=== PATIENT | female | born 1930 | race Caucasian/White ===

== ENCOUNTER 2017-11-28 20:06 | Inpatient (IN) | payer OTHER ==
[~2017-11-28] VITALS: Ht 152.4 cm; Wt 43.5 kg
[2017-11-28 20:06] VITALS: BP 175/84
[~2017-11-28 20:06] MED LIST: CARV25TA PO; CILO100T PO; ENAL10TA PO; GLU500 PO; HUM7030 SC; ISOS20TA13 PO; LANTUS SC; NIFEDIPINE PO; NITR100C1 PO; SIMV10TA1 PO; WARF2TAB17 PO; [UNRECOGNIZED DRUG - OTHER] PO
--- NOTE | 2017-11-28 20:06 | NUR ---
PT DEE DEE ALS. TAKEN TO BED 1
--- NOTE | 2017-11-28 20:06 | NUR ---
87/F BIBA FROM HOME W C/O SOB X 20 MINS AGO. PER EMS PT SATS 80S ON RA, PLACED ON CPAP, SATS 98%. RALES NOTED THROUGOUT, PT NOTED WITH INCREASED ACCESORY MUSCLE USE,SATS 98% ON BIPAP, 82HR. EMS GAVE 2 DOSES OF NITRO SL. +1 PITTING EDEMA ON BLE. PMH: DM, CHF, HTN
--- NOTE | 2017-11-28 20:10 | NUR ---
PT PLACED ON BIPAP SUPPORT AT DOCUMENTED SETTINGS, SETTINGS CONFIRMED BY DR WAGNER, TOLERATING BIPAP WELL, WILL CONT TO MONITOR.
[2017-11-28] MEDS ORDERED: NACL 0.9% 1,000 ML IV SCH (20:12)
[2017-11-28 20:17] VITALS: BP 175/84
[2017-11-28] MEDS ORDERED: FUROSEMIDE 40 MG/4 ML VIAL IVP ONE (20:20)
[2017-11-28] MEDS ORDERED: methylPREDNISolone SS 125 MG/2 ML VIAL IVP ONE (20:20)
[2017-11-28] MEDS ORDERED: ALBUTEROL SULFATE/IPRATROPIU 3 ML SOL IH ONE (20:30)
[2017-11-28] MEDS ORDERED: hydrALAZINE 20 MG/ML VIAL IVP ONE (20:50)
[2017-11-28] MEDS ORDERED: NITROGLYCERIN 2% 1 GM PKT TP ONE (20:50)
[2017-11-28 21:18] LABS: BASOPHILS # (AUTO) 0.1 K/uL (0.00-0.22); BASOPHILS % (AUTO) 1.2 % (0.0-2.0); EOSINOPHILS # (AUTO) 0.1 K/uL (0-0.4); EOSINOPHILS % (AUTO) 1.3 % (0.0-4.0); HEMATOCRIT 38.3 % (36-48); HEMOGLOBIN 12.8 g/dL (12.0-16.0); LYMPHOCYTES # (AUTO) 2.1 K/uL (2.5-16.5); LYMPHOCYTES % (AUTO) 29.7 % (20.5-51.1); MEAN CORPUSCULAR HEMOGLOBIN 28 pg (27-31); MEAN CORPUSCULAR HGB CONC 34 g/dL (33-37); MEAN CORPUSCULAR VOLUME 85 fL (80-94); MONOCYTES # (AUTO) 0.6 K/uL (0.8-1.0); MONOCYTES % (AUTO) 8.3 % (1.7-9.3); NEUTROPHILS # (AUTO) 4.3 K/uL (1.8-7.7); NEUTROPHILS % (AUTO) 59.5 % (42.2-75.2); PLATELET COUNT (AUTO) 149 K/uL (140-450); RED BLOOD CELL COUNT(AUTO) 4.51 MIL/uL (4.20-5.40); RED CELL DISTRIBUTION WIDTH 13.8 % (11.6-13.7); WHITE BLOOD COUNT (AUTO) 7.2 K/uL (4.8-10.8)
[2017-11-28 21:37] LABS: ANION GAP 16.6 (8-16); CARBON DIOXIDE 26.1 mmol/L (21-32); CHLORIDE 106 mmol/L (98-107); CREATININE 1.5 mg/dL (0.6-1.3); GLUCOSE 260 mg/dL (74-106); POTASSIUM 4.7 mmol/L (3.5-5.1); SODIUM SERUM 144 mmol/L (136-145); UREA NITROGEN, BLOOD 41 mg/dL (7-18)
[2017-11-28 21:45] LABS: PROTHROMBIN TIME 10.4 secs (10.8-13.4)
[2017-11-28 21:48] LABS: ALBUMIN 3.6 g/dL (3.4-5.0); ASPARTATE AMINOTRANSFERASE 20 U/L (15-37); TOTAL BILIRUBIN 0.7 mg/dL (0.0-1.0)
[2017-11-28 22:14] LABS: APPEARANCE,URINE CLOUDY (CLEAR); BILIRUBIN,URINE NEGATIVE (NEGATIVE); BLOOD, URINE TRACE-I (NEGATIVE); COLOR,URINE YELLOW (YELLOW); LEUKOCYTE ESTERASE ,URINE TRACE (NEGATIVE); NITRITE, URINE NEGATIVE (NEGATIVE); PH,URINE 6.5 (5.0-9.0); UGLUCOSE TRACE (NEGATIVE)
[2017-11-28 22:46] LABS: RBC,URINE 3-10 (FEW) /HPF (0-5)
[2017-11-28 22:47] LABS: WBC,URINE 16-25 (MOD) /HPF (0-5)
[2017-11-28] MEDS ORDERED: HYDROcodone/APAP 7.5/325 MG 1 TAB PO PRN (23:00)
[2017-11-28] MEDS ORDERED: ONDANSETRON 4 MG/2 ML VIAL IVP PRN (23:00)
[2017-11-28] MEDS ORDERED: ALBUTEROL SULFATE/IPRATROPIU 3 ML SOL IH PRN (23:00)
[2017-11-28] MEDS ORDERED: ACETAMINOPHEN 325 MG TAB PO PRN (23:00)
[2017-11-28] MEDS ORDERED: DEXTROSE 50% 50 ML SYR IVP PRN (23:05)
[2017-11-28] MEDS ORDERED: cefTRIAXone 1,000 MG VIAL ONE (23:07)
--- NOTE | 2017-11-28 23:22 | NUR ---
Patient will be admitted to care of [facility]. Admited to TELE. Will go to room 121A. Belongings list completed. BEDSIDE Report to CHASE TELLO. IV INFUSING
[2017-11-28 23:49] LABS: BARBITURATE, URINE NEG. ng/ml (NEG <=200); BENZODIAZEPINE, URINE NEG. ng/mL (NEG <=200); CANNABINOID, URINE NEG. ng/mL (NEG <=50); COCAINE, URINE NEG. ng/mL (NEG <=300); OPIATE, URINE NEG. ng/mL (NEG <=2000); PHENCYCLIDINE SCREEN,URINE NEG. ng/mL (NEG <=25)
[2017-11-29] VITALS (9 sets, daily range): BP systolic 0–188; BP diastolic 0–96
--- NOTE | 2017-11-29 | NUR ---
RECEIVED REPORT FROM ER NURSE AT THE BEDSIDE, PT IS AAOX4, ON BI-PAP. SKIN IS INTACT. IV TO L FA 20G PATENT AND INTACT INFUSING WELL. RESPIRATIONS ARE EVEN AND UNLABORED. SKIN IS WARM AND DRY TO TOUCH. DAUGHTER IS WITH PT AT THE BEDSIDE. INITIAL ASSESSMENT COMPLETED. PLAN OF CARE DISCUSSED WITH PT AND MOTHER, VERBALIZED UNDERSTANDING. ALL SAFETY PRECAUTIONS MET, CALL LIGHT WITHIN REACH, BOARD UPDATED, WILL CONTINUE TO MONITOR
--- NOTE | 2017-11-29 00:15 | NUR ---
DR. AVENDAÑO IN TO SEE PT AND DISCUSSED PLAN OF CARE WITH PT AND DAUGHTER
[2017-11-29] MEDS ORDERED: SIMV40TA5 PO (00:22)
[2017-11-29] MEDS ORDERED: ASPI81CT89 PO (00:22)
[2017-11-29] MEDS ORDERED: ENAL10TA PO (00:22)
[2017-11-29] MEDS ORDERED: SITA25TA3 PO (00:22)
[2017-11-29] MEDS ORDERED: GABA100C PO (00:22)
[2017-11-29] MEDS ORDERED: ENAL20TA PO (00:23)
[2017-11-29] MEDS ORDERED: LIDOCAINE 2% 100 MG/5 ML UJET TP PRN (01:05)
[2017-11-29] MEDS ORDERED: FURO-570 PO (01:09)
[2017-11-29 02:34] LABS: CHOL/HDL RATIO 4.9 (1-4.5); FREE T4 (FREE THYROXINE) 0.92 ng/dL (0.76-1.46); PHOSPHORUS 4.8 mg/dL (2.5-4.9); THYROID STIMULATING HORMONE 11.39 uIU/mL (0.34-3.74)
--- NOTE | 2017-11-29 03:30 | NUR ---
PT RESTING COMFORTABLY IN BED. NO S/S OF DISTRESS NOTED. ALL SAFETY PRECAUTIONS MET CALL LIGHT WITHIN REACH WILL CONTINUE TO MONITOR
[2017-11-29 06:28] LABS: BASOPHILS # (AUTO) 0.1 K/uL (0.00-0.22); BASOPHILS % (AUTO) 1.4 % (0.0-2.0); EOSINOPHILS % (AUTO) 0.2 % (0.0-4.0); HEMOGLOBIN 11.8 g/dL (12.0-16.0); LYMPHOCYTES # (AUTO) 0.8 K/uL (2.5-16.5); LYMPHOCYTES % (AUTO) 11.7 % (20.5-51.1); MEAN CORPUSCULAR HEMOGLOBIN 29 pg (27-31); MEAN CORPUSCULAR HGB CONC 34 g/dL (33-37); MEAN CORPUSCULAR VOLUME 86 fL (80-94); MONOCYTES % (AUTO) 0.6 % (1.7-9.3); NEUTROPHILS # (AUTO) 5.9 K/uL (1.8-7.7); NEUTROPHILS % (AUTO) 86.1 % (42.2-75.2); PLATELET COUNT (AUTO) 131 K/uL (140-450); RED BLOOD CELL COUNT(AUTO) 4.07 MIL/uL (4.20-5.40); RED CELL DISTRIBUTION WIDTH 13.7 % (11.6-13.7); WHITE BLOOD COUNT (AUTO) 6.8 K/uL (4.8-10.8)
[2017-11-29 06:41] LABS: MAGNESIUM 1.9 mg/dL (1.8-2.4); PHOSPHORUS 4.2 mg/dL (2.5-4.9)
[2017-11-29 06:58] LABS: ANION GAP 17.4 (8-16); CARBON DIOXIDE 22.9 mmol/L (21-32); CHLORIDE 105 mmol/L (98-107); POTASSIUM 5.3 mmol/L (3.5-5.1); SODIUM SERUM 140 mmol/L (136-145)
[2017-11-29 07:04] LABS: CREATININE 1.5 mg/dL (0.6-1.3); GLUCOSE 440 mg/dL (74-106); UREA NITROGEN, BLOOD 49 mg/dL (7-18)
--- NOTE | 2017-11-29 07:06 | NUR ---
RECEIVED CRITICAL LAB VALUE OF GLUCOSE 440 FROM LAB, MADE RESIDENTS AWARE
[2017-11-29] MEDS: ALBUTEROL SULFATE/IPRATROPIU 3 ML SOL IH SCH ×3 (07:36→20:19)
[2017-11-29] MEDS: BLOOD GLUCOSE MONITORING 1 DEV DEV FS SCH ×4 (07:38→21:00)
[2017-11-29] MEDS: INSULIN LISPRO SLIDING SCALE 100 UNITS/ML VIAL SUBQ PRN ×4 (07:39→20:54)
--- NOTE | 2017-11-29 07:45 | NUR ---
REPORT GIVEN TO DAY NURSE FOR CONTINUITY OF CARE, PT IN STABLE CONDITION. NO S/S OF DISTRESS NOTED
--- NOTE | 2017-11-29 07:50 | NUR ---
RECEIVED PATIENT REPORT AT BEDSIDE FROM NIGHT NURSE. PATIENT IS AAO X4 AND SHOWS NO S/S OF ACUTE DISTRESS ON BIPAP. DENIES PAIN NO SOB, DYSPNEA OR CHEST PAIN. IV NOTED ON THE LEFT AC SL, IV IS PATENT AND INTACT. SKIN IS INTACT. PATIENT WAS EXPLAINED POC, HOSPITAL ENVIRONMENT, AND USE OF CALL LIGHT FOR ASSISTANCE. PATIENT VERBALIZED UNDERSTANDING, WILL REQUIRE REINFORCEMENT AND FREQUENT ROUNDING. BED IS IN LOW POSITION WITH CALL LIGHT WITHIN REACH. SAFETY AND FALL RISK PRECAUTIONS IN PLACE.
--- NOTE | 2017-11-29 08:00 | NUR ---
PATIENT BP IS 188/72 HR 75 ON BIPAP O2 SAT @ 98% SHOWS NO S/S OF ACUTE DISTRESS BUT STATES, " ME MOLESTA LA MABLE." THE PATIENT IS UNCOMFORTABLE WITH BIPAP ON WILL TAKE OFF BIPAP AND GIVE PO MEDICATIONS AND ASSESS PATIENT OFF BIPAP.
[2017-11-29] MEDS: DOCUSATE SODIUM 100 MG GELCAP PO SCH ×2 (08:44→21:03)
[2017-11-29] MEDS: GABAPENTIN 100 MG CAP PO SCH ×3 (08:44→17:08)
[2017-11-29] MEDS: FUROSEMIDE 40 MG/4 ML VIAL IVP SCH (08:44)
[2017-11-29] MEDS: ASPIRIN 81 MG TAB.CHEW PO SCH (08:44)
[2017-11-29] MEDS: CYCLOBENZAPRINE 10 MG TAB PO SCH ×3 (08:45→17:09)
[2017-11-29] MEDS: LACTOBACILLUS RHAMNOSUS GG 1 EACH CAP PO SCH (08:45)
--- NOTE | 2017-11-29 08:45 | NUR ---
ADMINISTERED SCHEDULED MEDICATIONS, PATIENT SWALLOWED WITHOUT DIFFICULTY, PATIENT DENIES CHEST PAIN AND SOB. BIPAP MASK TAKEN OFF AND APPLIED O2 @ 2L VIA NC.
--- NOTE | 2017-11-29 08:45 | NUR ---
PATIENT REMOVED BY JOHNNA/RN FOR MORNING PO MEDS PLACED ON SUPPLEMENTAL OXYGEN AT 2 LPM VIA NC
--- NOTE | 2017-11-29 08:50 | NUR ---
CALLED DIONNA BLANDON TO EVALUATE PATIENT OFF BIPAP. PATIENT DOING WELL O2 SAT @ 98% DENIES DYSPNEA AND SOB. BED IN LOW POSITION WITH CALL LIGHT WITHIN REACH.
--- NOTE | 2017-11-29 08:52 | NUR ---
PATIENT HAS BEEN SCREENED AND CATEGORIZED MODERATE NUTRITION RISK. PATIENT WILL BE SEEN WITHIN 3-5 DAYS OF ADMISSION. 11/30/17-12/02/[address]
--- NOTE | 2017-11-29 08:55 | NUR ---
PATIENT ASSESSMENT DONE PATIENT DOING WELL OFF BIPAP SATURATION 97% ON SUPPLEMENTAL OXYGEN AT 2 LPM VIA NC HR 74 RR 20 NO EVIDENCE OF PULMONARY DISTRESS NOTED JOHNNA/RN AWARE
[2017-11-29] MEDS ORDERED: CARVEDILOL 12.5 MG TAB PO SCH (09:00)
[2017-11-29] MEDS ORDERED: ENALAPRIL 10 MG TAB PO SCH (09:00)
[2017-11-29] MEDS ORDERED: INSULIN DETEMIR 100 UNITS/ML 10 ML VIAL SUBQ SCH (09:00)
[2017-11-29] MEDS ORDERED: methylPREDNISolone SS 125 MG/2 ML VIAL IVP SCH (09:00)
--- NOTE | 2017-11-29 10:30 | NUR ---
ULTRA SOUNDS PROCEDURE IN PROGRESS LICENSED TAX CONSULTANT TO ATTEMPT INCENTIVE THERAPY AT A LATER TIME LOC AWAKE AND ALERT SATURATION 97% ON SUPPLEMENTAL OXYGEN AT 2 LPM VIA NC RR 24 BREATH SOUNDS CLEAR AT LEFT SIDE TO INSP/EXP RALES AT RIGHT SIDE LICENSED TAX CONSULTANT TO MONITOR
--- NOTE | 2017-11-29 10:31 | NUR ---
[facility] V60 BIPAP REMAINS AT BEDSIDE
--- NOTE | 2017-11-29 10:35 | NUR ---
US TECH AT BEDSIDE WILL TAKE OUT CAMARA CATHETER ONCE DONE.
--- NOTE | 2017-11-29 11:00 | NUR ---
DISCONTINUED CAMARA CATHETER ORDERED, 400CC OF YELLOW URINE DRAINED. BED IN LOW POSITION WITH CALL LIGHT WITHIN REACH. FAMILY AT BEDSIDE.
--- NOTE | 2017-11-29 11:23 | NUR ---
PATIENT BS IS 448, DR SOLO AWARE, ORDERED TO GIVE 10 UNITS HUMALOG.
--- NOTE | 2017-11-29 13:05 | NUR ---
PATIENT OUT OF BED IN BATHROOM AT THIS TIME HAT STOCK LAMINATING MACHINE OPERATOR TO ATTEMPT HHN THERAPY AT A LATER TIME
[2017-11-29] MEDS: cloNIDine 0.1 MG TAB PO SCH ×2 (13:42→21:03)
--- NOTE | 2017-11-29 13:42 | NUR ---
ADMINISTERED SCHEDULED MEDICATIONS. PATIENT SWALLOWED WITHOUT DIFFICULTY. PATIENT'S NEEDS MET AT THIS TIME. BED IN LOW POSITION WITH CALL LIGHT WITHIN REACH.
--- NOTE | 2017-11-29 14:37 | NUR ---
MEMBER SERVICE REPRESENTATIVE AT BEDSIDE. PATIENT IS SLEEPING AND SHOWS NO S/S OF ACUTE DISTRESS AT THIS TIME.
[2017-11-29] MEDS ORDERED: SODIUM POLYSTYRENE 15 GM/60 ML UDBTL PR SCH ×2 (15:30→18:00)
--- NOTE | 2017-11-29 15:50 | NUR ---
PATIENT V/S WERE TAKEN ON ROOM AIR. PATIENT DENIES SOB, DYSPNEA, AND CHEST PAIN. PATIENT O2 SAT IS 95% ROOM AIR. BED IN LOW POSITION WITH CALL LIGHT WITHIN REACH.
--- NOTE | 2017-11-29 17:13 | NUR ---
ADMINISTERED SCHEDULED MEDICATIONS. PATIENT SWALLOWED WITHOUT DIFFICULTY, PATIENT BS IS 308 SLIDING SCALE INITIATED AND GAVE 8 UNITS OF HUMALOG INSULIN. ALL NEEDS MET AT THIS TIME, BED IN LOW POSITION AND CALL LIGHT WITHIN REACH.
[2017-11-29] MEDS ORDERED: HYDROCHLOROTHIAZIDE 25 MG TAB PO SCH (17:42)
[2017-11-29] MEDS ORDERED: LACTULOSE 20 GM/30 ML UDC PO SCH (17:43)
--- NOTE | 2017-11-29 17:57 | NUR ---
ADMINISTERED SCHEDULED MEDICATIONS. PATIENT SWALLOWED WITHOUT DIFFICULTY, PATIENT'S MEDICATIONS FOR KAYEXALATE STILL AT BEDSIDE, PATIENT DRANK SOME OF IS HOWEVER STATES, "UN RATITO LO RAFY." PATIENT DOES NOT LIKE TASTE AND WILL TRY TO DRINK ALL OF IT AT A LATER TIME.
--- NOTE | 2017-11-29 19:25 | NUR ---
PATIENT REPORT GIVEN AT BEDSIDE TO NIGHT NURSE, PATIENT ENDORSED IN STABLE CONDITION
--- NOTE | 2017-11-29 19:30 | NUR ---
RECEIVED PT FROM JOHNNA TELLO PT BURMESE SPEAKER AAOX4 AMBULATES WITH LITHOGRAPHIC PRESS FEEDER ON TELEMETRY SR HL ON LEFT AC PATENT ON 2 LTS VIA NC NOT SOB NOTED REPOSITIONED INITIAL ASSESSMENT DONE
[2017-11-29] MEDS: SIMVASTATIN 40 MG TAB PO SCH (21:03)
--- NOTE | 2017-11-29 21:30 | NUR ---
PT IS ASSISTED TO USED BEDPAN VOIDING WELL YELLOW URINE
[2017-11-30] VITALS (7 sets, daily range): BP systolic 153–168; BP diastolic 56–65
--- NOTE | 2017-11-30 | NUR ---
PT REPOSITIONED NOT SOB NOTED PT IS ASSISTED WITH A BED MEDELLIN VOIDING WELL ON TELEMETRY SR
--- NOTE | 2017-11-30 04:00 | NUR ---
SPONGE BATH GIVEN LINEN CHANGED, REPOSITIONED Q2H, PT HAS BEEN VOIDING WELL ON TELE SR
[2017-11-30] MEDS: cloNIDine 0.1 MG TAB PO SCH ×3 (05:24→21:01)
[2017-11-30] MEDS: INSULIN LISPRO SLIDING SCALE 100 UNITS/ML VIAL SUBQ PRN ×4 (06:36→20:50)
--- NOTE | 2017-11-30 06:43 | NUR ---
PT SLEEPING DENEIS ANY PAIN OR DISCOMFORT ON TELEMETRY SR BP WILL BE MONITORING AFTER CLONIDINE GIVEN
[2017-11-30] MEDS: ALBUTEROL SULFATE/IPRATROPIU 3 ML SOL IH SCH ×3 (07:00→20:00)
--- NOTE | 2017-11-30 07:10 | NUR ---
ENDORSEMENT RECEIVED FROM ACCOUNTING MANAGER CPA NURSE. PATIENT IS SLEEPING COMFORTABLY. RESPIRATION EVEN, UNLABOR ON ROOM AIR. SKIN DRY AND WARM. IV PATENT AND INTACT. NO DISTRESS NOTED AT THIS TIME. BED AT LOW POSITION, CALL LIGHT WITHIN REACH.
--- NOTE | 2017-11-30 07:28 | NUR ---
PT IS ENDORSED TO GALLO TELLO FOR CONTINUITY OF CARE
[2017-11-30 07:38] LABS: BASOPHILS # (AUTO) 0.1 K/uL (0.00-0.22); BASOPHILS % (AUTO) 0.5 % (0.0-2.0); EOSINOPHILS % (AUTO) 0.1 % (0.0-4.0); HEMATOCRIT 33.5 % (36-48); HEMOGLOBIN 11.5 g/dL (12.0-16.0); LYMPHOCYTES # (AUTO) 0.7 K/uL (2.5-16.5); LYMPHOCYTES % (AUTO) 7.4 % (20.5-51.1); MEAN CORPUSCULAR HEMOGLOBIN 29 pg (27-31); MEAN CORPUSCULAR HGB CONC 35 g/dL (33-37); MEAN CORPUSCULAR VOLUME 84 fL (80-94); MONOCYTES # (AUTO) 0.2 K/uL (0.8-1.0); MONOCYTES % (AUTO) 1.9 % (1.7-9.3); NEUTROPHILS # (AUTO) 9.1 K/uL (1.8-7.7); NEUTROPHILS % (AUTO) 90.1 % (42.2-75.2); PLATELET COUNT (AUTO) 121 K/uL (140-450); RED BLOOD CELL COUNT(AUTO) 3.98 MIL/uL (4.20-5.40); RED CELL DISTRIBUTION WIDTH 14.3 % (11.6-13.7); WHITE BLOOD COUNT (AUTO) 10.1 K/uL (4.8-10.8)
[2017-11-30 08:53] LABS: MAGNESIUM 2.1 mg/dL (1.8-2.4); PHOSPHORUS 4.8 mg/dL (2.5-4.9)
[2017-11-30] MEDS ORDERED: CARVEDILOL 12.5 MG TAB PO SCH (08:53)
[2017-11-30 08:55] LABS: ANION GAP 14.2 (8-16); CHLORIDE 105 mmol/L (98-107); CREATININE 1.4 mg/dL (0.6-1.3); GLUCOSE 321 mg/dL (74-106); POTASSIUM 4.2 mmol/L (3.5-5.1); SODIUM SERUM 140 mmol/L (136-145); UREA NITROGEN, BLOOD 55 mg/dL (7-18)
[2017-11-30] MEDS ORDERED: methylPREDNISolone SS 40 MG/ML VIAL IVP SCH (09:00)
[2017-11-30] MEDS ORDERED: HYDROCHLOROTHIAZIDE 25 MG TAB PO SCH (09:00)
[2017-11-30] MEDS: LACTOBACILLUS RHAMNOSUS GG 1 EACH CAP PO SCH (09:13)
[2017-11-30] MEDS: FUROSEMIDE 40 MG/4 ML VIAL IVP SCH (09:14)
[2017-11-30] MEDS: GABAPENTIN 100 MG CAP PO SCH ×3 (09:14→16:15)
[2017-11-30] MEDS: DOCUSATE SODIUM 100 MG GELCAP PO SCH ×2 (09:15→20:58)
[2017-11-30] MEDS: ASPIRIN 81 MG TAB.CHEW PO SCH (09:15)
[2017-11-30] MEDS: CYCLOBENZAPRINE 10 MG TAB PO SCH ×3 (09:15→16:15)
[2017-11-30] MEDS: INSULIN DETEMIR 100 UNITS/ML 10 ML VIAL SUBQ SCH (09:16)
--- NOTE | 2017-11-30 10:45 | NUR ---
PATIENT IS AWAKE, ALERT. RESPIRATION EVEN, UNLABOR ON ROOM AIR. AMBULATED SELF TO BATHROOM WITH ASSISTANCE, STEADY GAIT. DENIED SOB AT THIS TIME. CALL LIGHT WITHIN REACH
[2017-11-30] MEDS: BLOOD GLUCOSE MONITORING 1 DEV DEV FS SCH ×3 (11:47→20:59)
--- NOTE | 2017-11-30 11:53 | NUR ---
PATIENT IS AWAKE, ALERT. RESPIRATION EVEN, UNLABOR ON ROOM AIR. COMPLAINED OF BACK PAIN 07/21. WILL NOTIFY MD, MEDICATE PER ORDER. FAMILY AT BEDSIDE
--- NOTE | 2017-11-30 11:55 | NUR ---
PT NOTE 1125 RECEIVED ORDER FOR PT EVAL, CHART REVIEWED AND CLEARED FOR PT PER RN. Pt WAS SEEN AWAKE, DAUGHTER PRESENT IN THE ROOM WHO STATES THAT Pt CANNOT PARTICIPATE WITH PT EVAL AT THIS TIME DUE TO PAIN; NOTIFIED RN. PER RN, Pt DOES NOT HAVE ANY ORDER FOR PAIN MEDS AT THE MOMENT; INFORMED DAUGHTER REGARDING THIS, DAUGHTER STILL REFUSED FOR Pt TO BE SEEN BY PT; WILL FOLLOW UP W/Pt SATURDAY. PVE(2)
--- NOTE | 2017-11-30 13:21 | NUR ---
PT SLEEPING WITH FAMILY AT BEDSIDE NO SIGNS OF DISTRESS AT THIS TIME
[2017-11-30] MEDS: HYDROcodone/APAP 5/325 MG 1 TAB TAB PO PRN (14:02)
[2017-11-30] MEDS ORDERED: NIFEdipine 30 MG TABER PO SCH ×2 (14:32→20:00)
--- NOTE | 2017-11-30 15:25 | NUR ---
PATIENT AMBULATED SELF WITH ASSIST TO THE BATHROOM, STEADY GAIT. MED WAS GIVEN PER ORDER.
[2017-11-30] MEDS: CARVEDILOL 12.5 MG TAB PO SCH (16:15)
--- NOTE | 2017-11-30 16:36 | NUR ---
DR. SOLO WAS MADE AWARE OF EKG WITH ST DEPRESSION.
--- NOTE | 2017-11-30 18:45 | NUR ---
PATIENT IS SLEEPING COMFORTABLY. RESPIRATION EVEN, UNLABOR ON 2L NC. NO DISTRESS NOTED AT THIS TIME. IV PATENT AND INTACT. CALL LIGHT WITHIN REACH
--- NOTE | 2017-11-30 19:19 | NUR ---
ENDORSEMENT GIVEN TO THE CLUTCH ASSEMBLER NURSE. PATIENT IS STABLE AT THIS TIME
--- NOTE | 2017-11-30 19:25 | NUR ---
RECEIVED PT FROM GALLO RN PT OCCITAN SPEAKER AAOX4 ON BED REST ON 02 2 LTS VIA NC ON TELEMETRY SR HL ON LEFT AC PATENT NOT SOB NOTED RELATIVES AT BED SIDE INITIAL ASSESSMENT DONE
--- NOTE | 2017-11-30 20:15 | NUR ---
TOLERATED INCENTIVE SPIROMETRY THERAPY WELL WITHOUT INCIDENT ENCOURAGED PATIENT WITH ACKNOWLEDGEMENT TO USE INCENTIVE SPIROMETRY EVERY 1-2 HOURS WHILE AWAKE BOBO uchooseS V60 BIPAP AT BEDSIDE
[2017-11-30] MEDS ORDERED: FUROSEMIDE 40 MG/4 ML VIAL IVP SCH (21:00)
[2017-11-30] MEDS: SIMVASTATIN 40 MG TAB PO SCH (21:00)
--- NOTE | 2017-11-30 22:35 | NUR ---
PT IS ASSISTED TO USED BED MEDELLIN VOIDING WELL YELLOW URINE ON TELE SR REPOSIIONNED Q3H
[2017-12-01] VITALS: BP 163/65
--- NOTE | 2017-12-01 02:14 | NUR ---
PT VERBALIZED TO FEEL THAT SHE WANT TO EAT SOMETHING SWEET AND PT IS AAOX4 AND PT USING BSC VOIDING AND BLOOD TEST WAS TAKEN AND WAS 60 AND SNACK GIVEN AND BLOOD TEST WILL BE TAKEN LATER
--- NOTE | 2017-12-01 03:30 | NUR ---
BLOOD SUGAR TAKEN AFTER PT EATING SNACK 86
[2017-12-01 04:00] VITALS: BP 107/46
[2017-12-01] MEDS: cloNIDine 0.1 MG TAB PO SCH (05:00)
--- NOTE | 2017-12-01 06:00 | NUR ---
SPONGE BATH GIVEN LINEN CHANGED NOT SOB NOTED BLOOD SUGAR TEST 182
[2017-12-01] MEDS: BLOOD GLUCOSE MONITORING 1 DEV DEV FS SCH ×4 (06:01→20:49)
[2017-12-01] MEDS: INSULIN LISPRO SLIDING SCALE 100 UNITS/ML VIAL SUBQ PRN ×2 (06:16→12:41)
[2017-12-01 07:03] LABS: BASOPHILS # (AUTO) 0.1 K/uL (0.00-0.22); EOSINOPHILS # (AUTO) 0.1 K/uL (0-0.4); EOSINOPHILS % (AUTO) 1.2 % (0.0-4.0); HEMATOCRIT 32.8 % (36-48); HEMOGLOBIN 10.9 g/dL (12.0-16.0); LYMPHOCYTES # (AUTO) 1.4 K/uL (2.5-16.5); LYMPHOCYTES % (AUTO) 18.8 % (20.5-51.1); MEAN CORPUSCULAR HEMOGLOBIN 28 pg (27-31); MEAN CORPUSCULAR HGB CONC 33 g/dL (33-37); MEAN CORPUSCULAR VOLUME 85 fL (80-94); MONOCYTES # (AUTO) 0.6 K/uL (0.8-1.0); MONOCYTES % (AUTO) 8.8 % (1.7-9.3); NEUTROPHILS # (AUTO) 5.1 K/uL (1.8-7.7); NEUTROPHILS % (AUTO) 70.2 % (42.2-75.2); PLATELET COUNT (AUTO) 130 K/uL (140-450); RED BLOOD CELL COUNT(AUTO) 3.85 MIL/uL (4.20-5.40); RED CELL DISTRIBUTION WIDTH 13.9 % (11.6-13.7); WHITE BLOOD COUNT (AUTO) 7.3 K/uL (4.8-10.8)
--- NOTE | 2017-12-01 07:22 | NUR ---
ENDORSEMENT RECEIVED FROM LIEUTENANT COLONEL NURSE. PATIENT IS SLEEPING COMFORTABLY. RESPIRATION EVEN, UNLABOR ON 2L NC. SKIN DRY AND WARM. NO DISTRESS NOTED AT THIS TIME. IV PATENT AND INTACT. BED AT LOW POSITION WITH BED ALARM ON. CALL LIGHT WITHIN REACH
[2017-12-01 07:33] LABS: MAGNESIUM 2.1 mg/dL (1.8-2.4); PHOSPHORUS 4.4 mg/dL (2.5-4.9)
[2017-12-01] MEDS: ALBUTEROL SULFATE/IPRATROPIU 3 ML SOL IH SCH ×3 (07:53→20:08)
[2017-12-01 08:00] VITALS: BP 107/53
[2017-12-01] MEDS: GABAPENTIN 100 MG CAP PO SCH ×3 (08:46→16:08)
[2017-12-01] MEDS: LACTOBACILLUS RHAMNOSUS GG 1 EACH CAP PO SCH (08:46)
[2017-12-01] MEDS: DOCUSATE SODIUM 100 MG GELCAP PO SCH ×2 (08:47→20:52)
[2017-12-01] MEDS: ASPIRIN 81 MG TAB.CHEW PO SCH (08:47)
[2017-12-01] MEDS: CYCLOBENZAPRINE 10 MG TAB PO SCH ×3 (08:47→16:08)
[2017-12-01] MEDS: FUROSEMIDE 40 MG/4 ML VIAL IVP SCH (08:47)
[2017-12-01] MEDS: CARVEDILOL 12.5 MG TAB PO SCH ×2 (08:48→16:08)
[2017-12-01] MEDS: NIFEdipine 30 MG TABER PO SCH (08:48)
[2017-12-01 08:57] LABS: CHLORIDE 103 mmol/L (98-107); GLUCOSE 168 mg/dL (74-106); SODIUM SERUM 138 mmol/L (136-145)
[2017-12-01] MEDS: INSULIN DETEMIR 100 UNITS/ML 10 ML VIAL SUBQ SCH (08:57)
[2017-12-01 08:59] LABS: CREATININE 1.6 mg/dL (0.6-1.3); UREA NITROGEN, BLOOD 62 mg/dL (7-18)
[2017-12-01] MEDS ORDERED: NIFEdipine 30 MG TABER PO SCH ×3 (09:00→14:48)
--- NOTE | 2017-12-01 09:34 | NUR ---
PATIENT IS AWAKE, ALERT. RESPIRATION EVEN, UNLABOR ON2L NC. MED WAS GIVEN PER ORDER. DENIED SOB, PAIN AT THIS TIME. CALL LIGHT WITHIN REACH.
--- NOTE | 2017-12-01 11:04 | NUR ---
DR. SOLO WAS MADE AWARE OF HER TRENDING UP BUN, CR. WILL CONTINUE TO FOLLOW UP
--- NOTE | 2017-12-01 11:30 | NUR ---
IV WAS REMOVED FROM LEFT AC, CATHETER INTACT, NO ACTIVE BLEEDING SEEN, PATIENT TOLERATED WELL
[2017-12-01 12:00] VITALS: BP 141/55
--- NOTE | 2017-12-01 14:24 | NUR ---
PATIENT IS AWAKE, ALERT, SITTING ON THE COMMODE. DENIED ANY SOB, OR PAIN. RESPIRATION EVEN, UNLABOR ON ROOM AIR. CALL LIGHT WITHIN REACH
--- NOTE | 2017-12-01 15:57 | NUR ---
DR. SOLO WAS MADE AWARE OF BP 162/72, ADVISED TO CONTINUE TO MONITOR.
[2017-12-01 16:00] VITALS: BP 162/72
[2017-12-01] MEDS ORDERED: CALCIUM CARBONATE 500 MG TAB PO SCH (16:32)
[2017-12-01] MEDS: NACL 0.9% 1,000 ML IV SCH (16:46)
[2017-12-01 16:48] LABS: CHOL/HDL RATIO 4.3 (1-4.5)
--- NOTE | 2017-12-01 17:45 | NUR ---
PATIENT IS AWAKE, ALERT, EATING DINNER. RESPIRATION EVEN, UNLABOR ON 2L NC. DENIED SOB, PAIN AT THIS TIME. IV PATENT AND INTACT. CALL LIGHT WITHIN REACH
--- NOTE | 2017-12-01 19:19 | NUR ---
ENDORSEMENT GIVEN TO THE AWARD CLERK NURSE. PATIENT IS STABLE AT THIS TIME
--- NOTE | 2017-12-01 19:20 | NUR ---
RECEIVED PT FROM GALLO RN PT MONGOLIAN SPEAKER AAOX4 USING BSC VOIDING WELL, IV ON LEFT FA INFUSING WELL ON TELEMETRY SR NOT DISTRESS NOTED INITIAL ASSESSMENT DONE
[2017-12-01 20:00] VITALS: BP 131/60
[2017-12-01] MEDS: SIMVASTATIN 40 MG TAB PO SCH (20:52)
[2017-12-01] MEDS: MEROPENEM 500 MG in NACL 0.9% 50 ML IV SCH (20:53)
--- NOTE | 2017-12-01 21:46 | NUR ---
BLOOD SUGAR TEST 77 SNACK GIVEN AND RESP THERAPY IS HERE GIVEN A BREATHING TX
[2017-12-02] VITALS: BP 128/47
--- NOTE | 2017-12-02 | NUR ---
PT IS ASSISTED TO USED BSC VOIDING WELL ON TELEMETRY SR NOT SOB NOTED DENIES ANY PAIN OR DISCOMFORT
[2017-12-02] MEDS: NACL 0.9% 1,000 ML IV SCH (03:34)
[2017-12-02 04:00] VITALS: BP 143/68
--- NOTE | 2017-12-02 04:00 | NUR ---
SPONGE BATH GIVEN PT USING WELL BSC VOIDING WELL ON TELEMETRY SR NOT DISTRESS NOTED
[2017-12-02] MEDS: BLOOD GLUCOSE MONITORING 1 DEV DEV FS SCH ×2 (06:00→12:13)
--- NOTE | 2017-12-02 06:02 | NUR ---
BLOOD SUGAR TEST 86
[2017-12-02 06:28] LABS: BASOPHILS # (AUTO) 0.1 K/uL (0.00-0.22); BASOPHILS % (AUTO) 1.5 % (0.0-2.0); EOSINOPHILS # (AUTO) 0.2 K/uL (0-0.4); EOSINOPHILS % (AUTO) 2.4 % (0.0-4.0); HEMATOCRIT 33.3 % (36-48); HEMOGLOBIN 11.6 g/dL (12.0-16.0); LYMPHOCYTES # (AUTO) 1.2 K/uL (2.5-16.5); LYMPHOCYTES % (AUTO) 18.8 % (20.5-51.1); MEAN CORPUSCULAR HEMOGLOBIN 29 pg (27-31); MEAN CORPUSCULAR HGB CONC 35 g/dL (33-37); MEAN CORPUSCULAR VOLUME 84 fL (80-94); MONOCYTES # (AUTO) 0.8 K/uL (0.8-1.0); NEUTROPHILS # (AUTO) 4.2 K/uL (1.8-7.7); NEUTROPHILS % (AUTO) 65.3 % (42.2-75.2); PLATELET COUNT (AUTO) 132 K/uL (140-450); RED BLOOD CELL COUNT(AUTO) 3.95 MIL/uL (4.20-5.40); RED CELL DISTRIBUTION WIDTH 13.9 % (11.6-13.7); WHITE BLOOD COUNT (AUTO) 6.5 K/uL (4.8-10.8)
--- NOTE | 2017-12-02 07:10 | NUR ---
RECEIVED REPORT FROM CONSULTANT IN ERGONOMICS AND SAFETY NURSE, PT IS RESTING IN BED, AA/OX4, AMBULATORY, IV IS ON THE LEFT FA, PATENT, INTACT, FLUSHING WELL, PT IS ON O2 2L NC, NO S/S OF RESPIRATORY DISTRESS OR DISCOMFORT NOTED, DISCUSSED PLAN OF CARE WITH PT, PT VERBALIZED UNDERSTANDING, SAFETY/FALL PRECAUTIONS ARE IN PLACE, CALL LIGHT IS WITHIN REACH, WILL CONTINUE TO MONITOR.
[2017-12-02 07:13] LABS: CARBON DIOXIDE 30.8 mmol/L (21-32); CHLORIDE 105 mmol/L (98-107); GLUCOSE 75 mg/dL (74-106); POTASSIUM 3.8 mmol/L (3.5-5.1); SODIUM SERUM 142 mmol/L (136-145)
[2017-12-02 07:15] LABS: MAGNESIUM 2.1 mg/dL (1.8-2.4); PHOSPHORUS 4.1 mg/dL (2.5-4.9)
[2017-12-02] MEDS: ALBUTEROL SULFATE/IPRATROPIU 3 ML SOL IH SCH ×3 (07:29→14:08)
[2017-12-02 07:45] LABS: CREATININE 1.2 mg/dL (0.6-1.3); UREA NITROGEN, BLOOD 54 mg/dL (7-18)
[2017-12-02 08:00] VITALS: BP 179/71
[2017-12-02] MEDS: GABAPENTIN 100 MG CAP PO SCH ×2 (08:27→12:15)
[2017-12-02] MEDS: DOCUSATE SODIUM 100 MG GELCAP PO SCH (08:27)
[2017-12-02] MEDS: CARVEDILOL 12.5 MG TAB PO SCH (08:27)
[2017-12-02] MEDS: LACTOBACILLUS RHAMNOSUS GG 1 EACH CAP PO SCH (08:27)
--- NOTE | 2017-12-02 08:27 | NUR ---
DUE MEDICATIONS GIVEN, PT TOLERATED WELL, CALL LIGHT IS WITHIN REACH.
[2017-12-02] MEDS: NIFEdipine 30 MG TABER PO SCH (08:28)
[2017-12-02] MEDS: ASPIRIN 81 MG TAB.CHEW PO SCH (08:28)
[2017-12-02] MEDS: MEROPENEM 500 MG in NACL 0.9% 50 ML IV SCH (08:29)
[2017-12-02] MEDS: FUROSEMIDE 40 MG/4 ML VIAL IVP SCH (08:29)
[2017-12-02] MEDS: CYCLOBENZAPRINE 10 MG TAB PO SCH ×2 (08:29→12:16)
[2017-12-02] MEDS: INSULIN DETEMIR 100 UNITS/ML 10 ML VIAL SUBQ SCH (08:48)
[2017-12-02] MEDS ORDERED: CALCIUM CARBONATE 500 MG TAB PO SCH (09:00)
--- NOTE | 2017-12-02 10:30 | NUR ---
ASSISTED PT TO BEDSIDE COMMODE AND BACK INTO BED, CALL LIGHT IS WITHIN REACH.
[2017-12-02 12:00] VITALS: BP 144/66
[2017-12-02] MEDS: HYDROcodone/APAP 5/325 MG 1 TAB TAB PO PRN (12:15)
[2017-12-02] MEDS: INSULIN LISPRO SLIDING SCALE 100 UNITS/ML VIAL SUBQ PRN (12:21)
--- NOTE | 2017-12-02 14:06 | NUR ---
CM NOTE PER REHAN, DAUGHTER, PATIENT IS UNDER SERVICES / [facility], ORDERED BY DR. James DOZIER. MADE AWARE THAT PATIENT HAS ORDERS FROM MD TO CONTINUE PHYSICAL THERAPY ONCE DISCHARGED HOME.
--- NOTE | 2017-12-02 14:08 | NUR ---
PT SLEEPING WITH NO SIGNS OF DISTRESS NOTED AT THIS TIME
[2017-12-02] MEDS ORDERED: ADA30 PO (14:52)
[2017-12-02] MEDS ORDERED: SULF1TAB12 PO (14:52)
[2017-12-02] MEDS ORDERED: LACT10CA PO (14:52)
--- NOTE | 2017-12-02 16:00 | NUR ---
PT DISCHARGE INSTRUCTIONS GIVEN, IV REMOVED, CATHETER TIP INTACT, ID WRIST BAND REMOVED. PT STABLE UPON DISCHARGE, ACCOMPANIED BY HER DAUGHTER.
[2017-12-03] MEDS ORDERED: INSULIN LANTUS 100 UNITS/ML 10 ML VIAL SUBQ SCH (09:00)
== END 2017-12-02 16:00 | disposition home health service (06) | DRG 291 ==
LOC: MED 20:06 → MTU 23:01
PROVIDERS: ADMIT Family Medicine Sports Medicine; ATTEND Family Medicine Sports Medicine
PROC: 5A09357 Assistance with Respiratory Ventilation, Less than 24 Consecutive Hours, Continuous Positive Airway Pressure (ICD-10-PCS; principal; 2017-11-28)
DX: I13.0 Hypertensive heart and chronic kidney disease with heart failure and stage 1 through stage 4 chronic kidney disease, or unspecified chronic kidney disease (principal); N17.0 Acute kidney failure with tubular necrosis; J96.01 Acute respiratory failure with hypoxia; D68.59 Other primary thrombophilia; E11.51 Type 2 diabetes mellitus with diabetic peripheral angiopathy without gangrene; E11.22 Type 2 diabetes mellitus with diabetic chronic kidney disease; E11.65 Type 2 diabetes mellitus with hyperglycemia; I50.43 Acute on chronic combined systolic (congestive) and diastolic (congestive) heart failure; N39.0 Urinary tract infection, site not specified; I42.9 Cardiomyopathy, unspecified; I16.0 Hypertensive urgency; E87.5 Hyperkalemia; E78.5 Hyperlipidemia, unspecified; N18.9 Chronic kidney disease, unspecified; D64.9 Anemia, unspecified; E83.51 Hypocalcemia; B96.20 Unspecified Escherichia coli [E. coli] as the cause of diseases classified elsewhere; Z16.12 Extended spectrum beta lactamase (ESBL) resistance; R31.9 Hematuria, unspecified; N28.1 Cyst of kidney, acquired; I70.0 Atherosclerosis of aorta; I08.0 Rheumatic disorders of both mitral and aortic valves; Z79.4 Long term (current) use of insulin; Z79.82 Long term (current) use of aspirin
CPT/HCPCS: 36415; 36600; 71045; 80048; 80053; 80305; 81001; 82550; 82553; 82803; 82948; 83036; 83605; 83735; 83874; 83880; 84100; 84439; 84443; 84484; 85025; 85610; 85730; 87040; 87081; 87086; 87186; 93005; 93308; 93925; 93970; 93976; 94640; 94660; 96365; 96375; 97110; 99285; J0360; J0696; J1815; J1940; J2185; J2930; J7030; J7060; J7620; Q0092